=== PATIENT | male | born 1940 | race Hispanic/Latino ===

== ENCOUNTER 2018-04-06 11:00 | Day surgery (SDC) | payer MEDICARE, OTHER ==
[2018-04-06] MEDS ORDERED: TYLENOL PO ONE (11:19)
[2018-04-06] MEDS ORDERED: BENADRYL IV ONE (11:20)
[2018-04-06 14:14] VITALS: BP 108/52
== END 2018-04-06 14:00 | disposition home or self-care (01) ==
LOC: CATHLABREC 11:00
DX: D69.6 Thrombocytopenia, unspecified (principal)
CPT/HCPCS: 36415; 85049; 86900; 86901; J1200; P9035

== ENCOUNTER 2018-04-07 06:01 | Day surgery (SDC) | payer MEDICARE, OTHER ==
[2018-04-07] MEDS ORDERED: NACL BACTERIOSTATIC INFILTRATI ONE (06:33)
[2018-04-07 06:58] LABS: Hemoglobin 8.8 gm/dl (11.8-15.2); Mean Corpuscular HGB Conc 32 % (32-34); Mean Corpuscular Hemoglobin 28 pg (28-32); Mean Corpuscular Volume 87 fl (84-94); Red Blood Count 3.11 M/mm3 (3.65-5.03)
[2018-04-07 07:07] LABS: Platelet Count 78 K/mm3 (140-440); Red Cell Distribution Width 20.9 % (13.2-15.2)
[2018-04-07] MEDS ORDERED: DIPRIVAN 10 MG/ML IV ONE (07:19)
[2018-04-07] MEDS ORDERED: SUBLIMAZE ONE (07:19)
[2018-04-07] MEDS ORDERED: XYLOCAINE 1%/ EPI 1:100,000 INFILTRATI ONE ×2 (07:20→07:35)
[2018-04-07] MEDS ORDERED: NACL 0.9% 500 ML 500 ML ONE (07:20)
[2018-04-07] MEDS ORDERED: HEPARIN 10,000 UNITS/10 ML ONE (07:20)
--- NOTE | 2018-04-07 07:30 | Anesthesia Consultation ---
Anesthesia Consult and Med Hx Date of service: 04/07/18 - Airway Anesthetic Teeth Evaluation: Good ROM Head & Neck: Adequate Mental/Hyoid Distance: Adequate Mallampati Class: Class II Intubation Access Assessment: Good - Pulmonary Exam CTA: Yes - Cardiac Exam Cardiac Exam: No Murmur - Pre-Operative Health Status ASA Pre-Surgery Classification: ASA3 Proposed Anesthetic Plan: General - Pulmonary Hx Smoking: No SOB: Yes - Cardiovascular System Hx Hypertension: Yes - Central Nervous System Hx Back Pain: Yes Hx Psychiatric Problems: No - Hematic Hx Anemia: Yes - Other Systems Hx Alcohol Use: No Hx Substance Use: No Hx Cancer: Yes
--- NOTE | 2018-04-07 07:30 | Anesthesia Day of Surgery ---
Anesthesia Day of Surgery - Day of Surgery Patient Examined: Yes Patient H&P Reviewed: Yes Patient is NPO: Yes
[2018-04-07] MEDS ORDERED: NACL 0.9% 500 ML IV ONE (07:35)
[2018-04-07] MEDS ORDERED: HEPARIN IV ONE (07:35)
[2018-04-07] MEDS ORDERED: NACL 0.9% IR ONE (07:35)
[2018-04-07] MEDS ORDERED: ePHEDrine SULFATE ONE (07:51)
[2018-04-07] MEDS ORDERED: XYLOCAINE MPF 2% ONE (07:53)
[2018-04-07] MEDS ORDERED: ZOFRAN ONE (07:55)
[2018-04-07] MEDS ORDERED: NEO SYNEPHRINE/NS Syringe(OR USE) IV ONE (07:55)
[2018-04-07] MEDS ORDERED: LACTATED RINGERS 1,000 ML IV SCH (08:00)
[2018-04-07] MEDS ORDERED: ANCEF/STERILE WATER 2 GM/20 ML IV NR (08:00)
[2018-04-07 08:51] LABS: Total Cells Counted 100
[2018-04-07 08:52] LABS: Acanthocytes Few; Anisocytosis 1+; Ovalocytes Few; Platelet Estimate Cons; Poikilocytosis 1+
--- NOTE | 2018-04-07 09:36 | Fluoroscopy Report ---
FLUOROSCOPY CENTRAL VENOUS DEVICE PLACEMENT HISTORY: [id number]-c-Mjjr insertion, poor venous access A left subclavian Ovuvnd-s-Chhf has been inserted which terminates near the cavoatrial junction. The lungs are clear there is no evidence for pneumothorax. Mild cardiomegaly with normal pulmonary vascularity is noted. IMPRESSION: Left Gsuxty-b-Jrjo placement as described. No pneumothorax.
--- NOTE | 2018-04-07 09:48 | Procedure Note ---
Date of procedure: 04/07/18 Pre-op diagnosis: Myelodysplasia syndrome Post-op diagnosis: same Procedure: Operation: Mediport insertion Description of procedure: Pt was placed supine on the OR table. General anesthesia by LMA was administered. Pt's chin, bilateral neck and chest were prepped and draped. Pt was placed in a Trendelenburg position. The left IJ vein was then easily accessed X 3 with the use of the Sono-site but the guide wire would not thread into the vein. The left subclavian vein was then accessed via an infraclavicular approach on the first attempt. The guide wire was inserted into the vein and fluoroscopy revealed the guide wire to course toward the SVC. The pocket for the Mediport was created just below the clavicle. The dilator and tear away sheaths were passed over the guide wire and the guide wire removed. The dilator was removed. The catheter was advanced into the subclavian vein/SVC and the tear away sheath removed. The catheter was cut to an appropriate length (22 cm) and was attached to the Mediport. The Mediport was secured to the adjacent SQ tissue with 2 sutures of 3-0 Vicryl. The Mediport incision and neck incision were closed with subcuticular sutures of 4-0 Monocryl. Skin glue was applied to all wounds followed by 2 X 2's and Tegaderms. Pt tolerated the procedure well. Upright CXR in the OR revealed the catheter tip to be within the SVC and there was no evidence of any pneumo or hemothorax. Pt was taken to PACU in stable condition. Anesthesia: other (LMA) Surgeon: JERICA VERDE Estimated blood loss: 50-100ml Pathology: none Condition: stable Disposition: PACU
[2018-04-07 12:12] VITALS: BP 102/71
== END 2018-04-07 11:00 | disposition home or self-care (01) ==
LOC: OR 06:01
PROVIDERS: ATTEND Surgery
DX: D46.9 Myelodysplastic syndrome, unspecified (principal); E78.00 Pure hypercholesterolemia, unspecified; I48.91 Unspecified atrial fibrillation; I10 Essential (primary) hypertension; K21.9 Gastro-esophageal reflux disease without esophagitis; M19.90 Unspecified osteoarthritis, unspecified site; Z92.21 Personal history of antineoplastic chemotherapy; Z85.6 Personal history of leukemia; Z98.890 Other specified postprocedural states
CPT/HCPCS: 36415; 77001; 85007; 85025; C1769; C1788; J0690; J1644; J2370; J2405; J2704; J3010; J7040; J7120